=== PATIENT | female | born 1995 | race Caucasian/White ===

== ENCOUNTER 2017-07-10 19:05 | Emergency (ER) | payer OTHER ==
[~2017-07-10] VITALS: Ht 157.5 cm; Wt 90.3 kg
[2017-07-10] MEDS ORDERED: MOTRIN800 MG PO (20:39)
[2017-07-10] MEDS ORDERED: FLEXERIL10 MG PO (20:39)
[2017-07-10 20:59] VITALS: BP 127/93
== END 2017-07-10 21:23 | disposition home or self-care (01) ==
LOC: EME 19:05
DX: M54.5 Low back pain (principal); R51 Headache; F31.9 Bipolar disorder, unspecified; V49.50XA Passenger injured in collision with unspecified motor vehicles in traffic accident, initial encounter; Y92.410 Unspecified street and highway as the place of occurrence of the external cause
CPT/HCPCS: 99281; 99284